=== PATIENT | female | born 1985 | race Caucasian/White ===

== ENCOUNTER 2017-10-31 08:35 | Emergency (ER) | payer OTHER ==
[2017-10-31] MEDS ORDERED: HYDROCODONE/ACETAMINOPHEN 5-325 MG TABLET PO ONE (09:25)
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
[2017-10-31 11:13] VITALS: BP 106/77
== END 2017-10-31 11:05 | disposition home or self-care (01) ==
LOC: ER 08:35
DX: S16.1XXA Strain of muscle, fascia and tendon at neck level, initial encounter (principal); S29.012A Strain of muscle and tendon of back wall of thorax, initial encounter; R51 Headache; M54.2 Cervicalgia; M54.89 Other dorsalgia; V43.32XA Unspecified car occupant injured in collision with other type car in nontraffic accident, initial encounter; Y93.89 Activity, other specified; Y92.219 Unspecified school as the place of occurrence of the external cause; F17.200 Nicotine dependence, unspecified, uncomplicated
CPT/HCPCS: 72070; 72125; 99284

== ENCOUNTER 2017-12-08 11:21 | Emergency (ER) | payer OTHER ==
[2017-12-08 11:32] VITALS: BP 120/65
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
== END 2017-12-08 12:15 | disposition home or self-care (01) ==
LOC: ER 11:21
DX: M54.2 Cervicalgia (principal); M54.9 Dorsalgia, unspecified; V89.2XXA Person injured in unspecified motor-vehicle accident, traffic, initial encounter
CPT/HCPCS: 99283